=== PATIENT | born 2000 ===

== ENCOUNTER 2023-04-09 17:45 | Outpatient (REF) | payer MEDICAID, SELFPAY ==
[2023-04-10 14:26] LABS: CT PCR DETECTED (Not Detect.); NG PCR NOT DETECTED (Not Detect.)
== END 2023-04-09 17:46 | disposition home or self-care (01) ==
LOC: HO.HHCLNP 17:45
PROVIDERS: Visit Provider Emergency Medicine
DX: R30.0 Dysuria (principal)
CPT/HCPCS: 0353U; 87086